=== PATIENT | male | born 1995 | race Caucasian/White ===

== ENCOUNTER 2019-01-07 15:48 | Emergency (ER) | payer OTHER ==
[2019-01-07 16:05] VITALS: BP 134/76; PULSE 110; RESP 18; TEMP 98
[2019-01-07] MEDS ORDERED: IBUPROFEN 600 MG TAB PO STA (16:05)
--- NOTE | 2019-01-07 16:07 | ED ---
Lower Extremity Injury HPI - General Chief Complaint: Extremity Injury, Lower Stated Complaint: [facility]-Ankle Injury Time Seen by Provider: 01/07/19 15:54 Source: patient Mode of arrival: ambulatory Limitations: no limitations - History of Present Illness Initial Comments: 23-year-old male patient presents to the emergency department today for evaluation of right ankle pain and swelling. Patient states that he was playing basketball around 1 PM today when he rolled his ankle. Patient states he is having pain to the anterior right ankle. Patient states he is able to ambulate but weightbearing does increase his pain. Denies any numbness or tingling to the foot. Denies falling after the injury. Denies taking any medication for his symptoms. Denies history of injury to the right ankle. Patient denies any headache, neck pain, back pain, chest pain, shortness of breath, dizziness, weakness, abdominal pain, nausea, vomiting, or difficulties with bowel movements or urination. - Related Data Previous Rx's Medication Instructions Recorded Ibuprofen [Motrin] 600 mg PO Q8HR PRN #30 tab 01/07/19 Allergies Allergy/AdvReac Type Severity Reaction Status Date / Time No Known Allergies Allergy Verified 01/07/19 16:31 Review of Systems ROS Statement: Those systems with pertinent positive or pertinent negative responses have been documented in the HPI. ROS Other: All systems not noted in ROS Statement are negative. Past Medical History Past Medical History: No Reported History History of Any Multi-Drug Resistant Organisms: None Reported Past Surgical History: Hernia Repair Past Psychological History: No Psychological Hx Reported Smoking Status: Current every day smoker Past Alcohol Use History: None Reported Past Drug Use History: None Reported General Exam Limitations: no limitations General appearance: alert, in no apparent distress, other (This is a well- developed, well-nourished adult male patient in no acute distress. Vital signs upon presentation are temperature 98.0F, pulse 110, respirations 18, blood pressure 134/76, pulse ox 95% on room air.) Eye exam: Present: normal appearance, PERRL, EOMI. Absent: scleral icterus, conjunctival injection, periorbital swelling ENT exam: Present: normal exam, normal oropharynx, mucous membranes moist Respiratory exam: Present: normal lung sounds bilaterally. Absent: respiratory distress, wheezes, rales, rhonchi, stridor Cardiovascular Exam: Present: regular rate, normal rhythm, normal heart sounds. Absent: systolic murmur, diastolic murmur, rubs, gallop, clicks Extremities exam: Present: full ROM, tenderness (Right anterior ankle tenderness), normal capillary refill, other (Mild soft tissue swelling noted surrounding the right ankle. Skin is otherwise pink, warm, dry. Cap refills less than 3 seconds. Pedal and posttibial pulses are 2+ and equal bilaterally.). Absent: normal inspection, pedal edema, joint swelling, calf tenderness Neurological exam: Present: alert, oriented X3, CN II-XII intact Psychiatric exam: Present: normal affect, normal mood Skin exam: Present: warm, dry, intact, normal color. Absent: rash Course Vital Signs 01/07/19 16:02 Temperature 98.0 F Pulse Rate 110 H Respiratory 18 Rate Blood Pressure 134/76 O2 Sat by Pulse 95 Oximetry Medical Decision Making - Medical Decision Making 23-year-old male patient presents to the emergency department today for evaluation of right ankle pain and swelling. Physical examination did reveal soft tissue swelling surrounding the right ankle. Mild tenderness over the right anterior ankle. X-ray was obtained and showed no acute osseous abnormalities. He'll be discharged with an ankle stirrup splint and education regarding rest, ice, elevation. He is instructed to follow-up with his primary care physician for recheck in 1-2 days. He is instructed to have repeat x-rays performed in 7-10 days if pain symptoms persist. Return parameters were discussed in detail. He verbalizes understanding and agrees with this plan. - Radiology Data Radiology results: report reviewed, image reviewed 3 views of the right ankle are obtained. Report was reviewed in its entirety. Impression by Dr. Silva shows no acute osseous abnormalities seen. Type to excess or navicular incidentally noted. Disposition Clinical Impression: Right ankle sprain Disposition: HOME SELF-CARE Condition: Good Instructions (If sedation given, give patient instructions): Ankle Sprain (ED) Additional Instructions: Use ankle splint for comfort and support. Rest, ice, elevate the ankle. Take Tylenol and Motrin for pain control. Follow-up with your primary care physician for recheck in 1-2 days. Have repeat x-ray performed in 7-10 days if pain symptoms persist. Return to the emergency department immediately for any new, worsening, or concerning symptoms. Prescriptions: Ibuprofen [Motrin] 600 mg PO Q8HR PRN #30 tab PRN Reason: Pain Is patient prescribed a controlled substance at d/c from ED?: No Referrals: None,Stated [Primary Care Provider] - 1-2 days Time of Disposition: 17:05
--- NOTE | 2019-01-07 16:49 | XR ---
EXAMINATION TYPE: XR ankle complete RT DATE OF EXAM: 01/07/2019 COMPARISON: NONE HISTORY: 23-year-old male right ankle pain after rolling injury TECHNIQUE: 3 views FINDINGS: Ankle mortise is congruent with preservation of the distal tibiofibular overlap. Talar dome is intact . No acute fracture, subluxation, or dislocation. Type II accessory navicular noted. Small delineatio n to the Achilles tendon. IMPRESSION: No acute osseous abnormality seen. Type II accessory navicular incidentally noted.
== END 2019-01-07 17:41 | disposition home or self-care (01) ==
LOC: EC 15:48
DX: S93.401A Sprain of unspecified ligament of right ankle, initial encounter (principal); F17.200 Nicotine dependence, unspecified, uncomplicated; X50.1XXA Overexertion from prolonged static or awkward postures, initial encounter; Y93.67 Activity, basketball; Y92.89 Other specified places as the place of occurrence of the external cause
CPT/HCPCS: 29515; 99283